=== PATIENT | male | born 1940 | race Caucasian/White ===

== ENCOUNTER → 2017-08-15 | Outpatient (CLI) | payer MEDICARE, OTHER ==
[~2017-08-15] MED LIST: CLOPIDOGREL BISULFATE 75 MG TABLET; DIAZEPAM 10 MG TABLET.; EPINEPHrine 1 MG/ML VIAL; EPTIFIBATIDE BOLUS 2,000 MCG/ML 10ML VIAL. IV; HEPARIN SODIUM 5,000 UNIT/ML VIAL for PCVC.; HEPARIN for ARTERIAL LINE 1,500 ML; IODIXANOL 270 MG/ML 100 ML VIAL.; IV NORMAL SALINE 1000ML BAG 1,000 ML; LIDOCAINE 1% Multi-Dose 20 ML VIAL.; MIDAZOLAM HCL/PF 2 MG/2 ML VIAL.; WATER FOR INJECTION,STERILE 10 ML IJ; ceFAZolin SODIUM 1 GM VIAL; fentaNYL PF VIAL 100 MCG/2 ML VIAL; hydrALAZINE 20 MG/ML VIAL.
== END | disposition home or self-care (01) ==
LOC: PCVCINTER 07:13
DX: I70.211 Atherosclerosis of native arteries of extremities with intermittent claudication, right leg (principal); I70.1 Atherosclerosis of renal artery; I10 Essential (primary) hypertension
CPT/HCPCS: 36252; 37186; 37227; 75716; 76937; 99152; 99153; C1725; C1751; C1757; C1760; C1769; C1876; C1885; C1887; C1894; C2628; J0171; J0360; J0690; J1327; J1644; J2250; J3010; J7030